=== PATIENT | female | born 2005 | race Caucasian/White ===

== ENCOUNTER 2024-07-19 08:59 | Emergency (ER) | payer OTHER ==
[2024-07-19 09:19] LABS: Bilirubin Small (Negative); Blood, Urine Negative (Negative); Clarity Slightly Cloudy (Clear); Glucose, Urine (Dipstick) Negative (Negative); Ketone, Urine > or equal to 80 mg/dL (Negative); Leukocyte Large (Negative); Nitrite Negative (Negative); Protein, Urine (Dipstick) 30 mg/dL (Neg-Trace)
[2024-07-19 09:22] LABS: Pregnancy Test - Urine (BHCG) Negative (Negative); Specific Gravity 1.029 (1.002-1.036)
[2024-07-19 09:23] LABS: Pregu Control Background? CLEAR/WHITE (CLR/WHITE); Pregu Control Bar Appear? YES (CONTROL BAR)
[2024-07-19 09:25] LABS: RBC/HPF 0-3 HPF (0-3); Specific Gravity, Urine 1.029 (1.002-1.036)
[2024-07-19 09:26] LABS: CAUTI Indications for Culture Pelvic or flank pain; WBC/HPF Greater than 50 HPF (0-3)
[2024-07-19 09:27] LABS: Bacteria/HPF 3+ HPF (None Seen)
[2024-07-19 09:28] LABS: Urine Culture Reflex Yes Yes
[2024-07-19] MEDS ORDERED: Ondansetron ODT 4 MG TAB ONE (09:31)
== END 2024-07-19 10:43 | disposition home or self-care (01) ==
LOC: MADERS 08:59
DX: R11.2 Nausea with vomiting, unspecified (principal); F17.290 Nicotine dependence, other tobacco product, uncomplicated
CPT/HCPCS: 81001; 81025; 87086; 99284; Q0162

== ENCOUNTER 2025-05-22 13:57 | Emergency (ER) | payer OTHER, SELFPAY | END 2025-05-22 14:22 | disposition home or self-care (01) | LOC: MADERS 13:57 | DX: L03.011 Cellulitis of right finger (principal); F17.290 Nicotine dependence, other tobacco product, uncomplicated | CPT/HCPCS: 99283 ==